=== PATIENT | male | born 1985 | race American Indian/Alaskan Native ===

== ENCOUNTER 2021-03-06 02:11 | Emergency (ER) | payer SELFPAY ==
[2021-03-06 02:47] VITALS: BP 141/85
--- NOTE | 2021-03-06 02:55 | Emergency Department Report ---
- General Chief Complaint: Headache Stated Complaint: SINUS PRESSURE/HEADACHE/CONGESTION Source: patient Mode of arrival: Ambulatory Limitations: No Limitations - History of Present Illness Initial Comments: Patient is a 35-year-old -[place] male with no past medical history presents to the ED with complaint of acute onset persistent nasal and sinus congestion, frontal sinus pressure, frontal headache and mild dry cough for the last 1 month, worse in the last 1 week. Patient states that he has been taking [id number] medications with no relief. Patient states that in the last 12 hours, he was not able to sleep because of persistent frontal sinus pressure, headache, nasal congestion and mild dry cough. Patient denies fever, chills, nausea, vomiting, sore throat, chest pain, shortness of breath, neck pain, change in vision, syncope, dizziness, lightheadedness, abdominal pain, diarrhea or nosebleed. MD Complaint: rhinorrhea, nasal congestion, sinus pain, other (Frontal and maxillary sinus pressure and headache) -: Sudden, month(s) (1) Severity: moderate Severity scale (0 -10): 6 Quality: sharp, aching Consistency: constant Improves With: nothing Worsens With: changing head position Associated Symptoms: denies other symptoms, headache, rhinorrhea, nasal congestion, cough. denies: fever, chills, myalgias, diaphoresis, sore throat, stiff neck, chest pain, shortness of breath, nausea, vomiting, diarrhea, dysuria, rash, right sweats, weight loss, epistaxis, hoarseness, ear pain Treatments Prior to Arrival: "cold medicine" - Related Data Previous Rx's Medication Instructions Recorded Last Taken Type Acetaminophen/Codeine [Tylenol #3] 1 tab PO Q6HR PRN #20 tab 10/09/15 Unknown Rx Tobramycin 0.3% [Tobrex] 2 drop OS Q4HR #1 bottle 10/09/15 Unknown Rx Amoxicillin [Trimox CAP] 500 mg PO Q8H #30 capsule 03/06/21 Unknown Rx Benzonatate [Tessalon Perles] 100 mg PO Q8HR #30 capsule 03/06/21 Unknown Rx Butalb/Acetamin/Caff 50-325-40 1 tab PO Q6HR PRN #12 tab 03/06/21 Unknown Rx [Fioricet 50-325-40] Fexofenadine/Pseudoephedrine 1 each PO DAILY #30 tab.er.24h 03/06/21 Unknown Rx [Jada-D 24 Hour Tablet] Fluticasone [Flonase] 1 spray NS QDAY #1 bottle 03/06/21 Unknown Rx Ibuprofen [Motrin] 600 mg PO Q8H PRN #30 tablet 03/06/21 Unknown Rx Allergies Allergy/AdvReac Type Severity Reaction Status Date / Time No Known Allergies Allergy Unverified 10/09/15 14:19 ED Review of Systems ROS: Stated complaint: SINUS PRESSURE/HEADACHE/CONGESTION Other details as noted in HPI Constitutional: malaise. denies: chills, fever Eyes: denies: eye pain, eye discharge, vision change ENT: congestion, other (Frontal sinus pressure). denies: ear pain, throat pain Respiratory: cough (Mild dry cough). denies: shortness of breath, wheezing Cardiovascular: denies: chest pain, palpitations Endocrine: no symptoms reported Gastrointestinal: denies: abdominal pain, nausea, vomiting, diarrhea Genitourinary: denies: urgency, dysuria Musculoskeletal: denies: back pain, joint swelling, arthralgia Skin: denies: rash, lesions Neurological: headache (Frontal sinus headache). denies: weakness, paresthesias Psychiatric: denies: anxiety, depression Hematological/Lymphatic: denies: easy bleeding, easy bruising ED Past Medical Hx - Past Medical History Previous Medical History?: No - Surgical History Past Surgical History?: Yes Hx Appendectomy: Yes - Social History Smoking Status: Current Every Day Smoker Substance Use Type: Alcohol - Medications Home Medications: Home Medications Medication Instructions Recorded Confirmed Last Taken Type Acetaminophen/Codeine [Tylenol #3] 1 tab PO Q6HR PRN #20 tab 10/09/15 Unknown Rx Tobramycin 0.3% [Tobrex] 2 drop OS Q4HR #1 bottle 10/09/15 Unknown Rx Amoxicillin [Trimox CAP] 500 mg PO Q8H #30 capsule 03/06/21 Unknown Rx Benzonatate [Tessalon Perles] 100 mg PO Q8HR #30 capsule 03/06/21 Unknown Rx Butalb/Acetamin/Caff 50-325-40 1 tab PO Q6HR PRN #12 tab 03/06/21 Unknown Rx [Fioricet 50-325-40] Fexofenadine/Pseudoephedrine 1 each PO DAILY #30 tab.er.24h 03/06/21 Unknown Rx [Jada-D 24 Hour Tablet] Fluticasone [Flonase] 1 spray NS QDAY #1 bottle 03/06/21 Unknown Rx Ibuprofen [Motrin] 600 mg PO Q8H PRN #30 tablet 03/06/21 Unknown Rx ED Physical Exam - General Limitations: No Limitations General appearance: alert, in no apparent distress - Head Head exam: Present: atraumatic, normocephalic, normal inspection - Eye Eye exam: Present: normal appearance, PERRL, EOMI Pupils: Present: normal accommodation - ENT ENT exam: Present: mucous membranes moist, TM's normal bilaterally, normal external ear exam, other (Grossly congested nasal passages; palpable frontal and maxillary sinus tenderness) - Neck Neck exam: Present: normal inspection, full ROM - Respiratory Respiratory exam: Present: normal lung sounds bilaterally. Absent: respiratory distress, wheezes, rhonchi, chest wall tenderness, accessory muscle use, other - Cardiovascular Cardiovascular Exam: Present: normal rhythm, tachycardia, normal heart sounds. Absent: systolic murmur, diastolic murmur, rubs, gallop - GI/Abdominal GI/Abdominal exam: Present: soft, normal bowel sounds. Absent: tenderness, guarding, rebound, hyperactive bowel sounds, hypoactive bowel sounds, or ganomegaly - Extremities Exam Extremities exam: Present: normal inspection, full ROM, normal capillary refill - Back Exam Back exam: Present: normal inspection, full ROM. Absent: tenderness, CVA tenderness (R), muscle spasm, paraspinal tenderness, vertebral tenderness - Neurological Exam Neurological exam: Present: alert, oriented X3, CN II-XII intact, normal gait, reflexes normal - Psychiatric Psychiatric exam: Present: normal affect, normal mood, anxious - Skin Skin exam: Present: warm, dry, intact, normal color. Absent: rash ED Course Vital Signs 03/06/21 03/06/21 02:45 02:58 Temperature 98.9 F Pulse Rate 105 H 94 H Respiratory 18 Rate Blood Pressure 141/85 O2 Sat by Pulse 97 99 Oximetry ED Medical Decision Making - Medical Decision Making This is a 35-year-old -[place] male with no past medical history presents to the ED with complaint of acute onset persistent nasal and sinus congestion, frontal sinus pressure, frontal headache and mild dry cough for the last 1 month, worse in the last 1 week. Patient states that he has been taking [id number] medications with no relief. Patient states that in the last 12 hours, he was not able to sleep because of persistent frontal sinus pressure, headache, nasal congestion and mild dry cough. In the ED, patient is alert and oriented x3 and is not in any distress but tachycardic and afebrile in triage. Based on the history and physical exam findings, the patient symptoms are likely due to acute upper respiratory infection versus sinusitis, allergic rhinitis and bronchitis. On reevaluation, patient's tachycardia resolved in the ED prior to being discharged home. Patient was therefore discharged home on medications and advised to follow-up with his primary care physician in 7 to 10 days for reevaluation. Patient is advised return to the ED immediately if symptoms get worse. - Differential Diagnosis Sinusitis; URI; bronchitis; allergic rhinitis; Critical care attestation.: If time is entered above; I have spent that time in minutes in the direct care of this critically ill patient, excluding procedure time. ED Disposition Clinical Impression: Acute recurrent maxillary sinusitis, Acute upper respiratory infection, Sinus headache Disposition: DC- TO HOME OR SELFCARE Is pt being admited?: No Does the pt Need Aspirin: No Condition: Stable Instructions: Sinusitis, Adult, Atsp-jr-[id number], Upper Respiratory Infection, Adult, [id number], Sinus Headache, Pqqr-[id number] Additional Instructions: Your symptoms are likely due to sinus headache due to sinusitis and allergic rhinitis. Therefore take medication with food, drink plenty of fluids and follow-up with your primary care physician in 5 to 7 days for reevaluation. Return to the ED immediately if symptoms get worse. Prescriptions: Fexofenadine/Pseudoephedrine [Jada-D 24 Hour Tablet] 1 each PO DAILY #30 tab.er.24h Butalb/Acetamin/Caff 50-325-40 [Fioricet 50-325-40] 1 tab PO Q6HR PRN #12 tab PRN Reason: Headache Fluticasone [Flonase] 1 spray NS QDAY #1 bottle Ibuprofen [Motrin] 600 mg PO Q8H PRN #30 tablet PRN Reason: Pain Benzonatate [Tessalon Perles] 100 mg PO Q8HR #30 capsule Amoxicillin [Trimox CAP] 500 mg PO Q8H #30 capsule Referrals: [facility] [Provider Group] - 3-5 Days Time of Disposition: 02:52 Print Language: BRUNEIAN
== END 2021-03-06 03:19 | disposition home or self-care (01) ==
LOC: ED 02:11
DX: J01.01 Acute recurrent maxillary sinusitis (principal); R51.9 Headache, unspecified; F17.200 Nicotine dependence, unspecified, uncomplicated; Z90.49 Acquired absence of other specified parts of digestive tract; Z79.899 Other long term (current) drug therapy
CPT/HCPCS: 99282

== ENCOUNTER 2021-08-22 12:52 | Emergency (ER) | payer SELFPAY ==
[2021-08-22 13:05] VITALS: BP 141/86
--- NOTE | 2021-08-22 14:32 | Emergency Department Report ---
ED General Adult HPI - General Chief complaint: Skin/Abscess/Foreign Body Stated complaint: LUMP ON LEFT SHOULDER/PAIN Time Seen by Provider: 08/22/21 13:54 Source: patient Mode of arrival: Ambulatory Limitations: No Limitations - History of Present Illness Initial comments: 35-year-old -[place] male patient presents with complaints of painful c yst to the left shoulder starting last night. Patient states he has had the cyst on his shoulder for about a year. He denies any fever/chills/sweats, redness, or swelling to the cyst. He states the pain lasted about 4 to 5 hours and then resolved. He states there is mild pain at current. No difficulty moving the shoulder or joint pain per patient. - Related Data Previous Rx's Medication Instructions Recorded Last Taken Type Acetaminophen/Codeine [Tylenol #3] 1 tab PO Q6HR PRN #20 tab 10/09/15 Unknown Rx Tobramycin 0.3% [Tobrex] 2 drop OS Q4HR #1 bottle 10/09/15 Unknown Rx Amoxicillin [Trimox CAP] 500 mg PO Q8H #30 capsule 03/06/21 Unknown Rx Benzonatate [Tessalon Perles] 100 mg PO Q8HR #30 capsule 03/06/21 Unknown Rx Butalb/Acetamin/Caff 50-325-40 1 tab PO Q6HR PRN #12 tab 03/06/21 Unknown Rx [Fioricet 50-325-40] Fexofenadine/Pseudoephedrine 1 each PO DAILY #30 tab.er.24h 03/06/21 Unknown Rx [Jada-D 24 Hour Tablet] Fluticasone [Flonase] 1 spray NS QDAY #1 bottle 03/06/21 Unknown Rx Ibuprofen [Motrin] 600 mg PO Q8H PRN #30 tablet 03/06/21 Unknown Rx Sulfamethoxazole/Trimethoprim 1 each PO BID 7 Days #14 tablet 08/22/21 Unknown Rx [Bactrim DS TAB] Allergies Allergy/AdvReac Type Severity Reaction Status Date / Time No Known Allergies Allergy Unverified 10/09/15 14:19 ED Review of Systems ROS: Stated complaint: LUMP ON LEFT SHOULDER/PAIN Other details as noted in HPI Constitutional: denies: chills, fever Musculoskeletal: denies: joint swelling, arthralgia Skin: change in color Neurological: denies: numbness, paresthesias ED Past Medical Hx - Past Medical History Previous Medical History?: No - Surgical History Past Surgical History?: Yes Hx Appendectomy: Yes - Social History Smoking Status: Current Every Day Smoker Substance Use Type: Alcohol - Medications Home Medications: Home Medications Medication Instructions Recorded Confirmed Last Taken Type Acetaminophen/Codeine [Tylenol #3] 1 tab PO Q6HR PRN #20 tab 10/09/15 Unknown Rx Tobramycin 0.3% [Tobrex] 2 drop OS Q4HR #1 bottle 10/09/15 Unknown Rx Amoxicillin [Trimox CAP] 500 mg PO Q8H #30 capsule 03/06/21 Unknown Rx Benzonatate [Tessalon Perles] 100 mg PO Q8HR #30 capsule 03/06/21 Unknown Rx Butalb/Acetamin/Caff 50-325-40 1 tab PO Q6HR PRN #12 tab 03/06/21 Unknown Rx [Fioricet 50-325-40] Fexofenadine/Pseudoephedrine 1 each PO DAILY #30 tab.er.24h 03/06/21 Unknown Rx [Jada-D 24 Hour Tablet] Fluticasone [Flonase] 1 spray NS QDAY #1 bottle 03/06/21 Unknown Rx Ibuprofen [Motrin] 600 mg PO Q8H PRN #30 tablet 03/06/21 Unknown Rx Sulfamethoxazole/Trimethoprim 1 each PO BID 7 Days #14 tablet 08/22/21 Unknown Rx [Bactrim DS TAB] ED Physical Exam - General Limitations: No Limitations General appearance: alert, in no apparent distress - Head Head exam: Present: atraumatic, normocephalic - Eye Eye exam: Present: normal appearance. Absent: scleral icterus - Respiratory Respiratory exam: Absent: respiratory distress - Cardiovascular Cardiovascular Exam: Present: regular rate, normal rhythm. Absent: systolic murmur, diastolic murmur, rubs, gallop - Extremities Exam Extremities exam: Present: other (Mobile left sebaceous cyst AC joint without erythema or swelling noted; cyst is mildly tender) - Neurological Exam Neurological exam: Present: alert, oriented X3 - Psychiatric Psychiatric exam: Present: normal affect, normal mood - Skin Skin exam: Present: warm, dry, intact, normal color. Absent: rash ED Course Vital Signs 08/22/21 13:04 Temperature 98.1 F Pulse Rate 88 Respiratory 16 Rate Blood Pressure 141/86 [Left] O2 Sat by Pulse 97 Oximetry ED Medical Decision Making - Medical Decision Making 35-year-old -[place] male patient presents with complaints of painful cyst to the left shoulder starting last night. Patient states he has had the cyst on his shoulder for about a year. He denies any fever/chills/sweats, redness, or swelling to the cyst. He states the pain lasted about 4 to 5 hours and then resolved. He states there is mild pain at current. No difficulty moving the shoulder or joint pain per patient. Suspected developing infection of sebaceous cyst. Patient placed on Bactrim. Patient to place warm compresses 3 times daily and follow-up with his PCP in 3 to 5 days. Discussed signs and symptoms that should prompt immediate return to emergency department with patient verbalized understanding. He is well- appearing, his vitals are normal, he is stable for discharge home. Critical care attestation.: If time is entered above; I have spent that time in minutes in the direct care of this critically ill patient, excluding procedure time. ED Disposition Clinical Impression: Sebaceous cyst Disposition: 01 HOME / SELF CARE / HOMELESS Is pt being admited?: No Condition: Stable Instructions: Epidermal Cyst Additional Instructions: Please follow-up with your primary care doctor within 3 days for blood pressure recheck Prescriptions: Sulfamethoxazole/Trimethoprim [Bactrim DS TAB] 1 each PO BID 7 Days #14 tablet Referrals: [facility] [Provider Group] - 3-5 Days PRIMARY CAREMD [Referring] - 3-5 Days Forms: Work/School Release Form(ED)
== END 2021-08-22 15:10 | disposition home or self-care (01) ==
LOC: ED 12:52
DX: L72.3 Sebaceous cyst (principal); F17.200 Nicotine dependence, unspecified, uncomplicated; Z90.49 Acquired absence of other specified parts of digestive tract; Z79.899 Other long term (current) drug therapy; Z72.89 Other problems related to lifestyle; Z98.890 Other specified postprocedural states
CPT/HCPCS: 99281